=== PATIENT | female | born 1960 | race Caucasian/White ===

== ENCOUNTER 2016-04-08 05:48 | Day surgery (SDC) | payer OTHER ==
[2016-04-08] VITALS (9 sets, daily range): BP systolic 93–108; BP diastolic 56–65; PULSE 62–72; RESP 16–18; Ht 154.9 cm; Wt 72.7 kg
[~2016-04-08] VITALS: Ht 154.9 cm; Wt 72.7 kg
--- NOTE | 2016-04-08 07:13 | PREOPHP ---
DATE OF ADMISSION: 04/08/2016 REASON FOR ADMISSION: She is to be admitted tomorrow for anterior repair and Bela plication and po ssible posterior repair also. CHIEF COMPLAINT: The patient complains of losing urine to minimal efforts like laughing or coughing and also while having sex. She was found to have a pelvic organ prolapse with cystocele and mild r ectocele and urinary stress incontinence with total loss of the urethrovesical angle. The procedure for repair and Bela plication was carefully explained to the patient in the office including graph ically explained of the alternatives, the benefits, the risks, and possible complications. Infectio n, hemorrhage, pelvic organ injury during the procedure as well as possible urinary retention, the n eed to use a Agarwal catheter for a few days postoperatively was described to the patient in detail. She was allowed to ask questions and all her questions were answered to her satisfaction, and she si gned the appropriate surgical informed consents. PAST MEDICAL HISTORY: The patient denies any major medical problems including diabetes, hypertensio n, renal disease, liver disease, thyroid disease, or neurological problems. ALLERGIES: NO KNOWN ALLERGIES. MEDICATIONS: She is currently taking Bactrim DS b.i.d. OBSTETRICAL HISTORY: The patient is 3, para 3. She also had a tubal ligation after her las t delivery. FAMILY HISTORY: Noncontributory. REVIEW OF SYSTEMS: A 12-point review of systems is noncontributory. PHYSICAL EXAMINATION: GENERAL: Well-developed and nourished, in no distress. Height is 5 feet 2 inches and weight 162 po unds. VITAL SIGNS: Showed the temperature to be 98, blood pressure 120/72, respirations are 16 per minute , the pulse is 72 per minute and regular. HEENT: Within normal limits. Pupils are PERRLA. NECK: Supple. The thyroid is nonpalpable. There is no lymphadenopathy. BREASTS: Show no masses or lumps. CHEST: Showed lungs to be clear to percussion and auscultation. HEART: Regular sinus rhythm without murmur. ABDOMEN: Soft. There are no organomegalies or hernias. PELVIC: Normal external genitalia. Grade III cystocele present with a total loss of the vesicouret hral angle and a rectocele also. Cervix is normal, high, and well suspended. The uterus is small, mobile. There are no adnexal masses. EXTREMITIES: Within normal limits. NEUROLOGIC: Also normal. IMPRESSION: 1. Pelvic organ prolapse. 2. Cystocele grade III. 3. Stress urinary incontinence. 4. Rectocele. 5. Obesity. Dictated By: CHELA BURNS/AMEYA Conf#: [id number] DID#: [id number]
[2016-04-08] MEDS ORDERED: VASOPRESSIN 20 UNITS INJ ONE (07:14)
[2016-04-08] MEDS ORDERED: LACTATED RINGER'S 1,000 ML IV* SCH (07:30)
[2016-04-08] MEDS ORDERED: BUPIVACAINE 0.5%/EPI (SDV) 30 ML INJ ONE (07:30)
[2016-04-08] MEDS ORDERED: PROPOFOL 20 ML ONE (07:33)
[2016-04-08] MEDS ORDERED: MEPERIDINE 100 MG INJ ONE (07:33)
[2016-04-08] MEDS ORDERED: LIDOCAINE 2% (SDV) 5 ML INJ ONE (07:33)
[2016-04-08] MEDS ORDERED: CEFAZOLIN 1 GM INJ ONE (07:49)
[2016-04-08] MEDS ORDERED: METOCLOPRAMIDE 10 MG INJ ONE (07:50)
[2016-04-08] MEDS ORDERED: ONDANSETRON 4 MG INJ ONE (07:50)
[2016-04-08] MEDS ORDERED: HEMOSTATIC MATRIX/ THROMBIN 1 EA SYG ZFS ONE (08:16)
--- NOTE | 2016-04-08 08:49 | PD.PPDC ---
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 Final Diagnosis: Stress urinary incontinence.Cystocele rectocele Condition Patient Condition: Good Diet Diet: Resume Regular Diet Activity/Restrictions Activity: Normal Activity May Shower Restrictions: No Lifting No Driving No Sexual Activity Nothing in the Vagina No Trooper Wound/Drain Care Instructions Wound/Drain Care Instructions: Keep clean and dry Follow-up Follow-up with Physician: 1, Week/Weeks Return to clinic for G[employer]OX T[employer]ER Instructions: Fever greater than 101 Worsening abdominal pain Excessive Vaginal Bleeding More than 2 pads per hour Unable to tolerate diet Surgical Instructions: Incisional Drainage Comment: Keep the Agarwal catheter bag lower than the level of the bladder. CHELA GARSIA MD Apr 08, 2016 08:49
[2016-04-08] MEDS ORDERED: LACTATED RINGER'S 1,000 ML IV SCH (08:51)
[2016-04-08] MEDS ORDERED: ONDANSETRON 4 MG INJ IV PRN (09:00)
[2016-04-08] MEDS ORDERED: OXYCODONE/ACETAMINOPHEN (5/325) TAB PO PRN ×2 (09:00)
[2016-04-08] MEDS ORDERED: morphine 2 MG INJ IV PRN (09:00)
[2016-04-08] MEDS ORDERED: IBUPROFEN 600 MG TAB PO PRN (09:00)
[2016-04-08] MEDS ORDERED: ACETAMINOPHEN 325 MG TAB PO PRN (09:00)
--- NOTE | 2016-04-08 11:57 | OPR ---
DATE OF OPERATION: 04/08/2016 PREOPERATIVE DIAGNOSES: 1. Pelvic organ prolapse. 2. Cystocele, grade II. 3. Rectocele, grade II. 4. Stress urinary incontinence. 5. Obesity. POSTOPERATIVE DIAGNOSES: 1. Pelvic organ prolapse. 2. Cystocele, grade II. 3. Rectocele, grade II. 4. Stress urinary incontinence. 5. Obesity. PROCEDURE: Anterior repair with Bela plication and posterior repair. SURGEON: Jonny Clayton MD ANESTHESIA: General. ANESTHESIOLOGIST: Dr. Negro COMPLICATIONS: None. ESTIMATED BLOOD LOSS: Minimal. SPECIMENS: None. PROCEDURE AND FINDINGS: With the patient under general anesthesia, laid on the table in the dorsal lithotomy position. Her lower abdomen, upper thighs, perineum, and vagina were prepped with Betadin e and after 3 minutes draped in the usual sterile fashion. A weighted posterior retractor was appli ed in the posterior vaginal wall and the base of the cystocele was grasped with Allis clamps. The a nterior mucosa of the vagina was then injected with 0.5% Marcaine with epinephrine, a total of 10 mL . An inverted T incision was done all the way up to the urethrovesical angle. The mucosa was opene d and then the endopelvic fascia was dissected away from the vaginal mucosa bilaterally. A Bela pl ication was done with 2 separate sutures of 2-[address]-2 needle. This obtained good elevati on of the vesicourethral angle. The cystocele was reduced with 2 pursestring sutures of the same singleton ture material. The excessive mucosa was trimmed bilaterally. Then, the mucosa was closed with a co ntinuous running stitch of 0 Vicryl. Good hemostasis was observed. Posterior repair was then start ed by grasping the outer part of the rectocele with 2 Allis clamps and the fourchette of the vagina. The mucosa was infiltrated with 0.5% Marcaine with epinephrine, a total of 10 mL. The mucosa was opened in a T fashion. The endopelvic fascia was dissected away from the vaginal mucosa. Bleeding was minimal. The rectocele was then reduced by pursestring sutures of 0 Vicryl. Excessive mucosa w as then trimmed bilaterally. The vaginal mucosa was closed with a continuous running stitch of doub le 0 Vicryl. Good hemostasis was observed. There were no packings left in place. Needle, sponge, and instrument count at the end of the procedure was correct twice. The patient withstood the proce dure well and was taken to the recovery room with all vital signs stable with a Agarwal in place. Dictated By: JONNY BURNS/AMEYA Conf#: [id number] DID#: [id number]
== END 2016-04-08 11:30 | disposition home or self-care (01) ==
LOC: SDS 05:48
PROVIDERS: ATTEND Specialist
DX: N81.10 Cystocele, unspecified (principal); N81.6 Rectocele; N39.3 Stress incontinence (female) (male); E66.9 Obesity, unspecified; Z68.30 Body mass index [BMI] 30.0-30.9, adult
CPT/HCPCS: 57260; 84703; 86850; 86900; 86901; J0690; J2175; J2405; J2765; Z7512; Z7610

== ENCOUNTER 2017-09-09 12:31 | Day surgery (SDC) | END 2017-09-09 15:33 | disposition home or self-care (01) ==